=== PATIENT | female | born 1980 | race Caucasian/White ===

== ENCOUNTER 2017-09-18 06:06 | Inpatient (IN) | payer OTHER ==
--- NOTE | 2017-09-17 14:29 | HP ---
HISTORY OF PRESENT ILLNESS: We have recently seen Ms. Watson at the request of Dr. Rodríguez for right duane ssopharyngeal neuralgia. Ms. Watson is a 37-year-old female who in the past year has developed right-s ided throat and facial pain consistent with glossopharyngeal neuralgia. She describes the symptoms a s an electric sensation. She has had tonsillectomy and multiple tooth procedures and several ENT pro cedures without successful relief of her symptoms. She has had prior imaging without specific findin gs. She has followed with neurologist multiple times. She feels that these symptoms were consistent with glossopharyngeal neuralgia and she has maximized medical management up to this point. Therefor e, we discussed indications, risks, benefits, and alternatives of right craniotomy, exploration of th e glossopharyngeal nerve, microvascular decompression and possible rhizotomy. Dr. Booker discussed the possibility of lack of success with this procedure with regards to relief of her symptoms. She understands this and wished to proceed. PAST MEDICAL HISTORY: Migraine headaches, chronic pain syndrome, gastric ulcers, SI joint dysfunctio n, hepatomegaly and glossopharyngeal neuralgia. PAST SURGICAL HISTORY: Hysterectomy and oophorectomy, pituitary removal with a nasal septum surgery, tonsillectomy, eye muscle surgery, spinal tap with CSF leak correction. HOSPITALIZATIONS: See surgical history. FAMILY HISTORY: Noncontributory. SOCIAL HISTORY: The patient does not smoke, drink or use any drugs. She is . CURRENT MEDICATION LIST: Estradiol, Klonopin, Prozac, Wellbutrin, Zantac, Adderall, Flexeril, tramad ol, trazodone. ALLERGIES: The patient is allergic to CEPHALOSPORINS, IMITREX, LATEX, or ADHESIVES. REVIEW OF SYSTEMS: Per HPI. PHYSICAL EXAMINATION: CONSTITUTIONAL: No acute distress. HEAD: Normocephalic, atraumatic. EYES: PERRLA. Extraocular movements intact. ENT: Oral mucosa is pink, moist, with intact. CARDIAC: Regular rate and rhythm. LUNGS: Patient has symmetric chest expansion. Breathing comfortably. MUSCULOSKELETAL: Good muscle tone in the bilateral upper and lower extremities. No reflex asymmetry or focal motor reflex. NEUROLOGIC: Alert and oriented x4. No focal neurologic deficits are appreciated. ASSESSMENT AND PLAN: The patient appears to have right-sided acute glossopharyngeal neuralgia. Plan for right craniotomy, exploration of the glossopharyngeal nerve, microvascular decompression and pos sible rhizotomy. Dr. Booker has discussed risks, benefits, and alternatives, and the patient wishe d to proceed.
[2017-09-18] MEDS ORDERED: Fentanyl 250 MCG/5 ML VIAL ONE ×2 (06:27→08:20)
[2017-09-18] MEDS ORDERED: Midazolam HCl 2 mg/2 ml Vial ONE (06:27)
[2017-09-18] MEDS ORDERED: Clindamycin/D5W 900 mg/50 ml Premix Bag ONE (06:31)
[2017-09-18] MEDS ORDERED: Levofloxacin 500 mg/D5W 100 ml Premix Bag ONE (06:31)
[2017-09-18] MEDS ORDERED: Lidocaine 0.5%/Epinephrine 1:200,000 50 ml Vial ONE (06:32)
[2017-09-18] MEDS ORDERED: Bacitracin Zinc Ointment 30 gm TUBE ONE (06:32)
[2017-09-18] MEDS ORDERED: Sodium Chloride 0.9% 10 ML ONE (06:32)
[2017-09-18 06:47] LABS: #Eosinphils 0.1 thou/uL (0.0-0.7); #Lymphocytes 2.7 thou/uL (1.20-3.40); #Monocytes 0.4 thou/uL (0.11-0.59); #Neutrophils 2.8 thou/uL (1.40-6.50); %Basophils 0.4 % (0.0-1.0); %Eosinophils 1.6 % (0.0-10.0); %Lymphocytes 44.9 % (21.0-51.0); %Monocytes 6.2 % (0.0-10.0); %Neutrophils 46.9 % (42.0-75.0); Hemoglobin 12.3 g/dL (12.0-16.0); Mean Corpuscular HGB CONC 33.6 g/dL (32.0-36.0); Mean Corpuscular Hemoglobin 28.6 pg (27.0-31.0); Mean Corpuscular Volume 85.1 fl (81.0-99.0); Mean Platelet Volume 7.3 fL (7.4-10.4); Platelet Count 212 thou/uL (130-400); RBC Distribution Width 12.2 % (11.5-14.5)
[2017-09-18 06:58] LABS: Anion Gap 9 mmol/L (10-20); BUN (Urea Nitrogen) 8 mg/dL (7.0-18.7); Calc. Creatinine Clearance 156 mL/min (70-130); Calcium 9.1 mg/dL (7.8-10.44); Carbon Dioxide 29 mmol/L (22-29); Chloride 107 mmol/L (98-107); Estimated GFR-MDRD Greater than 90; Glucose 91 mg/dL (70-105); Potassium 3.4 mmol/L (3.5-5.1); Sodium 142 mmol/L (136-145)
[2017-09-18] MEDS ORDERED: Scopolamine 1.5 mg/72 hour Patch ONE (07:06)
[2017-09-18] MEDS ORDERED: Morphine Sulfate 2 MG/ML SYRINGE SLOW IVP PRN (07:25)
[2017-09-18] MEDS ORDERED: HYDROmorphone 2 MG/ML VIAL SLOW IVP PRN (07:25)
[2017-09-18] MEDS ORDERED: Promethazine HCl 25 MG/ML VIAL SLOW IVP PRN (07:25)
[2017-09-18] MEDS ORDERED: hydrALAZINE 20 MG/ML VIAL SLOW IVP PRN (11:06)
[2017-09-18] MEDS ORDERED: Promethazine HCl 25 MG SUPP PR PRN (11:06)
[2017-09-18] MEDS ORDERED: Docusate 100 MG CAP PO PRN (11:06)
[2017-09-18] MEDS ORDERED: HYDROcodone/Acetaminophen 10/325 mg Tablet PO PRN ×2 (11:06)
[2017-09-18] MEDS ORDERED: Mag-Al 1200 mg/1200 mg/30 ML UDCUP PO PRN (11:06)
[2017-09-18] MEDS ORDERED: Ondansetron HCl/PF 4 MG/2 ML Vial IVP PRN (11:06)
[2017-09-18] MEDS ORDERED: Promethazine 25 MG TAB PO PRN (11:06)
[2017-09-18] MEDS ORDERED: Labetalol HCl 100 MG/20 ML VIAL SLOW IVP PRN (11:06)
[2017-09-18] MEDS ORDERED: diphenhydrAMINE 50 MG/ML VIAL IVP PRN ×2 (11:06→16:10)
--- NOTE | 2017-09-18 11:08 | OP ---
DATE OF PROCEDURE: 09/18/2017 SURGEON: Baljit Booker M.D. MERCHANDISE SUPPORT ASSOCIATE: Eh Terrazas PROCEDURE: Right suboccipital craniectomy, microvascular decompression ninth cranial nerve and opera ting microscope. PROCEDURE IN DETAIL: The patient was brought to the operating room and intubated. She was positione d supine with the head turned to the left fixed in the serene baggage porter head. The right suboccipital in cision was made and the suboccipital cranium was exposed. A single pema hole was placed and a cranie ctomy was performed. The junction of the transverse sigmoid sinus was identified. After complete ex posure of the dura, the dura was incised in cruciate fashion reflected laterally and medially exposin g the cerebellum. Using the operating microscope and microdissection techniques, we incised the arac hnoid drain CSF and gradually retracted the cerebellum identifying the lower cranial nerve complex. There was significant thickened arachnoid which was lysed from the 9th cranial nerve and then the 9th cranial nerve explored. A small arterial pulsatile branch was pulsating on the artery from its midp oint distally and a second arterial structure distally was identified that could have been contacting the nerve as well. Bossman pledgets were used to pack away the artery from the neck. Cranial nerve and this was done satisfactorily. Next, the brain was extensively irrigated, and the cerebellar surf gagandeep was lined with Surgicel. The dura was then closed in watertight fashion using a Dura-Guard artif icial dura and a running 4-0 Prolene suture. This was reinforced with DuraSeal fibrin sealant. The wound was then closed in anatomic layers.
[2017-09-18] MEDS ORDERED: Fentanyl 100 MCG/2 ML VIAL ONE (11:09)
[2017-09-18] MEDS ORDERED: Morphine 4 MG/ML VIAL IV PRN (11:09)
[2017-09-18] MEDS ORDERED: diphenhydrAMINE 25 MG CAP PO PRN ×2 (11:11→16:10)
[2017-09-18] MEDS ORDERED: Clindamycin/D5W 900 MG in Premix Bag 1 BAG IVPB SCH (12:00)
[2017-09-18 12:30] VITALS: BMI 30.3
[2017-09-18] MEDS: Sodium Chloride 0.9% 1,000 ML IV SCH (13:11)
[2017-09-18] MEDS ORDERED: PHENYLEPHRINE-NS 100 MCG/ML 10 ML SYRINGE ONE (13:33)
[2017-09-18] MEDS ORDERED: Glycopyrrolate 0.2 MG/ML 5 ML SYRINGE ONE (13:33)
[2017-09-18] MEDS ORDERED: Lidocaine 1% PF 5 ML VIAL ONE (13:33)
[2017-09-18] MEDS ORDERED: Ondansetron HCl/PF 4 MG/2 ML Vial ONE (13:33)
[2017-09-18] MEDS ORDERED: PROPOFOL 200 MG/20 ML VIAL ONE (13:33)
[2017-09-18] MEDS ORDERED: Esmolol 100 MG/10 ML VIAL ONE (13:33)
[2017-09-18] MEDS: Morphine 4 MG/ML VIAL IV PRN ×2 (14:11→15:09)
[2017-09-18] MEDS: Clindamycin/D5W 900 MG in Premix Bag 1 BAG IVPB SCH ×2 (14:12→20:43)
[2017-09-18] MEDS ORDERED: diphenhydrAMINE 50 MG/ML VIAL IM PRN (16:10)
[2017-09-18] MEDS ORDERED: Promethazine HCl 25 MG/ML VIAL IM PRN (16:10)
[2017-09-18] MEDS ORDERED: Naloxone HCl 0.4 mg/ml Vial IV PRN (16:10)
[2017-09-18] MEDS ORDERED: Zolpidem Tartrate 5 MG TAB PO PRN (16:10)
[2017-09-18] MEDS ORDERED: Communication Order-Pharmacy FS SCH (16:15)
[2017-09-18] MEDS: Ondansetron HCl/PF 4 MG/2 ML Vial IVP PRN (16:54)
[2017-09-18] MEDS: HYDROmorphone 10 mg/100 ml CADD IVPB PRN (17:11)
[2017-09-18] MEDS ORDERED: Famotidine/PF 20 mg/2ml Vial SLOW IVP SCH (21:00)
[2017-09-19] MEDS: Sodium Chloride 0.9% 1,000 ML IV SCH ×2 (00:41→15:02)
[2017-09-19] MEDS: Ondansetron HCl/PF 4 MG/2 ML Vial IVP PRN ×4 (00:45→21:15)
[2017-09-19] MEDS: Clindamycin/D5W 900 MG in Premix Bag 1 BAG IVPB SCH (03:20)
[2017-09-19] MEDS: Pantoprazole 40 MG VIAL IVP SCH (08:37)
[2017-09-19] MEDS: Acetaminophen 1,000 MG in Premix Bag 1 BAG IVPB SCH ×3 (11:56→23:35)
[2017-09-19] MEDS: Promethazine HCl 25 MG/ML VIAL IM PRN (17:20)
[2017-09-20] MEDS: Sodium Chloride 0.9% 1,000 ML IV SCH ×3 (03:15→21:47)
[2017-09-20] MEDS: Acetaminophen 1,000 MG in Premix Bag 1 BAG IVPB SCH ×2 (05:33→11:12)
[2017-09-20] MEDS: Promethazine HCl 25 MG/ML VIAL IM PRN ×3 (07:07→21:04)
[2017-09-20] MEDS: Pantoprazole 40 MG VIAL IVP SCH (08:36)
[2017-09-20] MEDS: HYDROmorphone 10 mg/100 ml CADD IVPB PRN (14:41)
[2017-09-21] MEDS: Sodium Chloride 0.9% 1,000 ML IV SCH (06:24)
[2017-09-21] MEDS ORDERED: Acetaminophen 1,000 MG in Premix Bag 1 BAG IVPB PRN (07:30)
[2017-09-21] MEDS: Pantoprazole 40 MG VIAL IVP SCH (08:39)
[2017-09-21] MEDS: Promethazine HCl 25 MG/ML VIAL IM PRN ×2 (08:49→13:00)
[2017-09-21] MEDS ORDERED: HYDROcodone/Acetaminophen 10/325 mg Tablet PO PRN ×2 (10:47)
[2017-09-21 11:35] VITALS: BP 135/84; TEMP 98.2
--- NOTE | 2017-09-21 14:22 | PRG ---
DATE OF SERVICE: 09/21/2017 SUBJECTIVE: Ms. Watson is postop day #2 following right MVD of the glossopharyngeal nerve. She still has a great deal of pain and headache in this area and has some neck stiffness when turning her head to look to her right. She also unfortunately complains of some nausea, particularly when up and ambu lating, but she does not ambulate well. She uses a walker in the hospital setting and is going to be set up with one she go home with. We had a discussion about her pain medications. She feels like s he had gone home 3 years ago when she was admitted with us with Percocet, but I am recalling that it is likely [place]. I also checked her discharge from [facility] and confirmed that it was [place] 1 0/325. We can look at potentially discontinuing [employer] later today and see how well she tolerates with just p.o. [place] and then plan to possibly discharge her home at her request this afternoon. Again, christian ponce will need to monitor her progress to make sure that this is the safest thing for her. I also discu ssed this with Dr. Rodríguez. This is Baljit Arriola PA-C, dictating for Dr. Rodríguez.
--- NOTE | 2017-09-23 09:55 | DIS ---
DATE OF ADMISSION: 09/18/2017 DATE OF DISCHARGE: 09/21/2017 ATTENDING PHYSICIAN: Dr. Baljit Booker DISCHARGE SUMMARY: Ms. Watson is a 37-year-old female with a past medical history of glossop haryngeal neuralgia, intractable conservative measures, who underwent right suboccipital craniectomy with microvascular decompression on 09/18/2017. Postoperatively, she was admitted to the hospital wh ere she received [employer] for treatment of her pain as well as multiple nausea medicines. Her symptoms im proved with time and she was transitioned to p.o. meds. On postop day #2, she was requesting to be d ischarged home. During her stay, she was tolerating a clear liquid diet. She was ambulating with a walker, voiding appropriately. Plan to follow up with her in 2 weeks and remi are removed at that time. I have discussed home care precautions and followup reasons to reach out to us sooner. She h as been prescribed [place], Phenergan and Zofran for symptoms.
== END 2017-09-21 13:32 | disposition home or self-care (01) | DRG 42 ==
LOC: SURG A 06:06 → CCU 12:03 → SURG A 09-19 11:15
PROVIDERS: ADMIT Neurological Surgery; ATTEND Neurological Surgery
PROC: 00N Central Nervous System and Cranial Nerves, Release (ICD-10-PCS; principal; 2017-09-18)
DX: G52.1 Disorders of glossopharyngeal nerve (principal); G50.0 Trigeminal neuralgia; Z90.710 Acquired absence of both cervix and uterus; Z88.8 Allergy status to other drugs, medicaments and biological substances
CPT/HCPCS: 80048; 85025; 93005; 93010; A4216; C9113; G8978-GP-CJ; G8979-GP-CJ; G8980-GP-CJ; J0131; J1200; J1956; J2001; J2250; J2270; J2405; J2550; J2704; J3010; J3490; S0028